=== PATIENT | male | born 1950 | race Caucasian/White ===

== ENCOUNTER 2020-04-10 21:22 | Inpatient (IN) | payer MEDICARE, BC ==
[2020-04-10 23:16] VITALS: BP 137/89
[2020-04-10] MEDS ORDERED: Magnesium Hydroxide (MOM) 30 mL UDC PO PRN (23:18)
[2020-04-10] MEDS ORDERED: Maalox 30 mL Cup PO PRN (23:18)
--- NOTE | 2020-04-11 17:54 | Consultation ---
DATE OF CONSULTATION: HISTORY OF PRESENT ILLNESS: We have a 69-year-old male who is admitted for falls and agitation. The patient lives in [place]. No nausea, vomiting, abdominal pain, diarrhea. PAST MEDICAL HISTORY: 1. Parkinson's. 2. Dementia. PAST SURGICAL HISTORY: None. MEDICATIONS: List reviewed. ALLERGIES: None. SOCIAL HISTORY: Unobtainable. PHYSICAL EXAMINATION: VITAL SIGNS: Temperature is 98.4, pulse 74, respirations 20, blood pressure 130/78, satting 98% on room air. HEENT: Normocephalic, atraumatic head exam. NECK: Supple. CARDIOVASCULAR: Regular rate and rhythm. LUNGS: Decreased breath sounds. ABDOMEN: Soft, nontender. EXTREMITIES: No edema, cyanosis or clubbing. ASSESSMENT AND PLAN: 1. Dementia with behavioral manifestations. 2. Parkinson's. We will start the patient on medications. The patient will be managed by Dr. Franco. Overall, prognosis is fair. [facility]# [id number]
--- NOTE | 2020-04-11 22:37 | Psychiatric Evaluation ---
DATE OF SERVICE: 04/10/2020 PSYCHIATRIC EVALUATION AND MENTAL EXAMINATION IDENTIFYING DATA: The patient is a 69-year-old male, resident of a detention facility. Information obtained by directly interviewing the patient as well as reviewing the admission papers. JUSTIFICATION OF HOSPITALIZATION: The patient is admitted on 515 as a danger to others. CHIEF COMPLAINT: "I don't know." HISTORY OF PRESENT ILLNESS: This is the first psychiatric hospitalization to [facility] for this patient who is reported to have been diagnosed to have Parkinson's disease and also dementia and psychosis. The patient is being followed up by Dr. Sen on an outpatient basis. At the time of the hospitalization, the patient is reported to have been getting easily irritable, angry and striking out the staff members and the patient could not be continued at a lower level of care and has to be brought over here for stabilization I tried to interview the patient in the morning, but the patient has not been able to give any information and the patient has been too sleepy and snoring and most of the medications from the facility have been continued and the patient is both on the Klonopin and then Ativan and the Klonopin is discontinued. The patient is going to be continued on Ativan on a p.r.n. basis. The patient is also on Nuplazid and family has been requested to bring the medication to the hospital. PAST PSYCHIATRIC HISTORY: Details are not known. MEDICAL HISTORY AND PHYSICAL EXAMINATION: Requested and done by Dr. Mcnulty. SUBSTANCE ABUSE HISTORY: None. PHYSICAL OR SEXUAL ABUSE HISTORY: None. LEGAL PROBLEMS: None at this time. MENTAL STATUS EXAMINATION: The patient is a 69-year-old, looking his stated age, superficially cooperative. Eye contact is poor. Mood is noted to be irritable. Affect is constricted. Insight and judgment at this time are noted to be impaired. Impulse control is noted to be limited. The patient has been having difficult time to cope with the stress. The patient has been getting easily irritable as per the staff members. The patient is also reported to have been having paranoia, but denies any command hallucinations at this time. The patient is alert and is aware that he is in the hospital, but attention span and concentration are noted to be very poor. Short and long-term memory are also noted to be very poor. The patient's gait seems to be okay so far. DIAGNOSTIC IMPRESSION: AXIS I: Unspecified psychosis. IB: Dementia and behavioral changes, secondary trait. AXIS II: None. AXIS III: As per Dr. Mcnulty. IMMEDIATE TREATMENT PLAN: The patient is going to be observed on inpatient unit, provided with supportive psychotherapy. The patient is going to be closely monitored. Encouraged to participate in groups and verbalize the concerns. Once stabilized, the patient is going to be discharged to [facility] to be followed up on an outpatient basis. JOB# [id number]
[2020-04-12] MEDS: Pantoprazole 40 mg EC Tab PO SCH (09:18)
--- NOTE | 2020-04-12 15:05 | Internal Medicine Prog Note ---
Internal Medicine Subjective - Subjective Service Date: 04/12/20 Patient seen and examined:: without staff Patient is:: awake Per staff patient has:: no adverse event, no episodes of fall Internal Medicine Objective - Physical Exam Vitals and I&O: Vital Signs Temp 100.1 F 04/11/20 14:00 Pulse 90 04/11/20 14:00 Resp 20 04/11/20 14:00 BP 131/83 04/11/20 14:00 Pulse Ox 98 04/11/20 14:00 Intake & Output 04/11/20 04/12/20 04/12/20 18:59 06:59 18:59 Intake Total 240 120 Balance 240 120 Intake: Oral 240 120 Other: # Voids 2 2 # Bowel Movements 0 0 Active Medications: Current Medications Al Hydrox/Mg Hydrox/Simethicone (Maalox) 30 ml PO Q4HR PRN PRN Reason: GI DISTRESS Stop: 06/09/20 23:17 Carbidopa/Levodopa (Sinemet 25mg-100 Mg) 1 tab PO TID KALIA Stop: 06/10/20 20:59 Last Admin: 04/12/20 14:27 Dose: 1 tab Lorazepam (Ativan) 0.5 mg PO Q6HR PRN; Protocol PRN Reason: Anxiety Stop: 05/10/20 23:17 Last Admin: 04/12/20 09:30 Dose: 0.5 mg Magnesium Hydroxide (Milk Of Magnesia) 30 ml PO HS PRN PRN Reason: Constipation Pantoprazole Sodium (Protonix) 40 mg PO DAILY KALIA Stop: 06/11/20 08:59 Last Admin: 04/12/20 09:18 Dose: 40 mg Quetiapine Fumarate (Seroquel) 25 mg PO DAILY KALIA; Protocol Stop: 06/11/20 08:59 Last Admin: 04/12/20 09:21 Dose: 25 mg Tamsulosin HCl (Flomax) 0.4 mg PO DAILY KALIA Stop: 06/11/20 08:59 Last Admin: 04/12/20 09:18 Dose: 0.4 mg Zolpidem Tartrate (Ambien) 5 mg PO HS PRN PRN Reason: Insomnia Stop: 06/09/20 23:17 HEENT: NC/AT Neck: Supple Lungs: CTAB Cardiovascular: RRR, Normal S1, Normal S2 Abdomen: soft, non-tender Extremities: clear Internal Medicine Assmt/Plan - Assessment Assessment: 1. Parkinson's 2. Dementia 3. Schizophrenia - Plan Plan: continue supportive care d/w r.n.
[2020-04-13] MEDS: Pantoprazole 40 mg EC Tab PO SCH (09:41)
[2020-04-13] MEDS ORDERED: NUPLAZID 34 MG PO SCH (10:00)
[2020-04-13] MEDS ORDERED: Venelex 60gm Tube TP SCH (17:15)
--- NOTE | 2020-04-14 15:14 | Internal Medicine Prog Note ---
Internal Medicine Subjective - Subjective Service Date: 04/14/20 Patient is:: awake Per staff patient has:: no adverse event, no episodes of fall Internal Medicine Objective - Physical Exam Vitals and I&O: Vital Signs Temp 97.9 F 04/13/20 19:59 Pulse 100 04/13/20 19:59 Resp 20 04/13/20 19:59 BP 102/66 04/13/20 19:59 Pulse Ox 82 04/13/20 19:59 Intake & Output 04/13/20 04/14/20 04/14/20 18:59 06:59 18:59 Intake Total 300 120 Balance 300 120 Intake: Oral 300 120 Other: # Voids 2 2 # Bowel Movements 0 0 Stool Characteristics Soft Brown HEENT: NC/AT Neck: Supple Lungs: CTAB Cardiovascular: RRR, Normal S1, Normal S2 Abdomen: soft, non-tender Extremities: clear Neurological: no change Internal Medicine Assmt/Plan - Assessment Assessment: 1. Parkinson's 2. Dementia 3. Schizophrenia - Plan Plan: continue supportive care d/w r.n.
--- NOTE | 2020-04-14 16:18 | Progress Notes ---
DATE: 04/13/2020 SUBJECTIVE: Staff was spoken to. The patient is interviewed. Chart is reviewed. The patient continues to be isolative and withdrawn and very limited participation in the groups, particularly in the morning. The patient has been sleeping most of the time in the morning and hence the Seroquel has been changed from nighttime to daytime to see if it is going to be medically difference. The patient needs to be redirected when he gets up. The patient has been getting easily upset. The patient is currently on 25 mg of the Seroquel and also has been restarted on the Nuplazid. The patient is getting the carbidopa/levodopa. ASSESSMENT: The patient is still impulsive. PLAN: To continue the patient with the supportive therapy, encouraged the patient to verbalize the concerns rather than to act out. JOB# [id number]
--- NOTE | 2020-04-14 16:18 | Progress Notes ---
DATE: 04/12/2020 SUBJECTIVE: Staff was spoken to. The patient is interviewed. Mood is noted to be irritable. The patient has been sleeping most of the time during the daytime and it has been becoming difficult to wake him up. The patient has been getting the Seroquel at night time and hence I have decided to change the Seroquel from nighttime to morning and see how he is going to be responding. The patient's clonazepam has been discontinued and the patient has been placed on the lorazepam on 0.5 mg q. 6 hours p.r.n. and the patient is reported to have been having difficulty towards the end of the day. ASSESSMENT: The patient is still agitated in the evenings when he gets up. PLAN: To continue the patient with the supportive therapy, encouraged the patient to verbalize the concerns rather than to act out. JOB# [id number]
== END 2020-04-13 21:10 | disposition short-term general hospital (02) | DRG 885 ==
LOC: GERO 22:08
PROVIDERS: ADMIT Psychiatry & Neurology Psychiatry; ATTEND Psychiatry & Neurology Psychiatry
DX: F29 Unspecified psychosis not due to a substance or known physiological condition (principal); F02.81 Dementia in other diseases classified elsewhere, unspecified severity, with behavioral disturbance; G20 Parkinson's disease; F20.9 Schizophrenia, unspecified; Z79.899 Other long term (current) drug therapy
CPT/HCPCS: 83036-90; J2060; Z7610